=== PATIENT | female | born 1950 | race Caucasian/White ===

== ENCOUNTER 2021-06-26 13:51 | Outpatient (CLI) | payer MEDICARE ==
--- NOTE | 2021-06-26 14:15 | XRAY Report ---
PROCEDURE: Shoulder 3 View RT INDICATIONS: RIGHT SHOULDER PAIN TECHNIQUE: 3 views of the shoulder were acquired. COMPARISON: None. FINDINGS: Bones: No acute fractures or dislocations. No suspicious bony lesions. Visualized ribs appear inta ct. Soft tissues: No suspicious soft tissue calcifications. IMPRESSION: No acute osseous abnormality. If symptoms persist or there is continued clinical concern , further evaluation with MRI or CT may be helpful. Reviewed by: Demian Castillo MD on 06/26/2021 2:13 PM PDT Approved by: Demian Castillo MD on 06/26/2021 2:13 PM PDT Station ID: [id number]
== END 2021-06-26 13:52 | disposition home or self-care (01) ==
LOC: DI.S 13:51
PROVIDERS: ATTEND Nurse Practitioner Family
DX: M25.511 Pain in right shoulder (principal)

== ENCOUNTER 2022-08-28 13:00 | Outpatient (CLI) | payer MEDICARE ==
--- NOTE | 2022-09-05 12:02 | Mammography Report ---
BILATERAL DIGITAL SCREENING MAMMOGRAM 3D/2D: 08/28/2022 CLINICAL: Routine screening. Family history of breast cancer. No prior exams were available for comparison. Both breasts are almost entirely fatty (category a/<25% glandular tissue). There is an asymmetry in the right breast at 10 o'clock middle depth. There is an asymmetry in the left breast at 7 o'clock anterior depth. No other significant masses or calcifications are seen in either breast. IMPRESSION: INCOMPLETE: NEEDS ADDITIONAL IMAGING EVALUATION The asymmetry in the right breast at 10 o'clock middle depth is indeterminate. Additional views with possible ultrasound are recommended. The asymmetry in the left breast at 7 o'clock anterior depth is indeterminate. Additional views with possible ultrasound are recommended. Based on the Tyrer Cuzick model (a risk assessment model) the patients lifetime risk is 6.1% and her 10 year risk is 3.6%. According to the ACR, ACS, and NCCN guidelines, an annual breast MRI exam ulises g with mammogram is recommended if the patients lifetime risk is 20% or greater. This exam was interpreted at Station ID: [id number]. NOTE: For mammograms, a report in lay terms will be sent to the patient. Approximately 15% of breast malignancies will not be visualized mammographically. In the management of a palpable breast mass, a negative mammogram must not discourage biopsy of a clinically suspicious lesion. Electronically Signed By: Du Caban M.D. acr/:09/05/2022 11:55:19 ACR BI-RADS Category 0: Incomplete 3340F PARENCHYMAL PATTERN: (F) - The breast(s) demonstrate(s) diffuse fatty replacement. BI-RADS CATEGORY: (0) - 0 Mammo and US [id number] Immediate follow-up LATERALITY: (B)
== END 2022-08-28 13:01 | disposition home or self-care (01) ==
LOC: DI.S 13:00
PROVIDERS: ATTEND Nurse Practitioner Family
DX: Z12.31 Encounter for screening mammogram for malignant neoplasm of breast (principal); Z80.3 Family history of malignant neoplasm of breast; R92.8 Other abnormal and inconclusive findings on diagnostic imaging of breast

== ENCOUNTER 2022-09-22 12:14 | Outpatient (CLI) | payer MEDICARE ==
--- NOTE | 2022-09-25 11:44 | Mammography Report ---
BILATERAL DIGITAL DIAGNOSTIC MAMMOGRAM 3D/2D WITH SPOT COMPRESSION: 09/22/2022 CLINICAL: Patient returns today to evaluate asymmetries in bilateral breasts. Comparison is made to exams dated: 08/28/2022 mammogram - [facility], 01/13/2021 claudine mogram, 10/11/2020 mammogram, 10/18/2012 mammogram, and 10/15/2012 [facility]. Both breasts are almost entirely fatty (category a/<25% glandular tissue). There is an asymmetry in the right breast at 10 o'clock middle depth. This is not significantly anaya ged. There is an asymmetry in the left breast at 7 o'clock anterior depth. This is not significantly anaya ged. No other significant masses or calcifications are seen in either breast. IMPRESSION: INCOMPLETE: NEEDS ADDITIONAL IMAGING EVALUATION The asymmetry in the right breast at 10 o'clock middle depth is indeterminate. An ultrasound is ynani mmended. The asymmetry in the left breast at 7 o'clock anterior depth is indeterminate. An ultrasound is yanni mmended. Based on the Tyrer Cuzick model (a risk assessment model) the patients lifetime risk is 3.4% and her 10 year risk is 2.1%. According to the ACR, ACS, and NCCN guidelines, an annual breast MRI exam ulises g with mammogram is recommended if the patients lifetime risk is 20% or greater. This exam was interpreted at Station ID: [id number]. NOTE: For mammograms, a report in lay terms will be sent to the patient. Approximately 15% of breast malignancies will not be visualized mammographically. In the management of a palpable breast mass, a negative mammogram must not discourage biopsy of a clinically suspicious lesion. Electronically Signed By: Rod Alvarez M.D., jr/bruna:09/22/2022 13:32:23 ACR BI-RADS Category 0: Incomplete 3340F PARENCHYMAL PATTERN: (F) - The breast(s) demonstrate(s) diffuse fatty replacement. BI-RADS CATEGORY: (0) - 0 Ultrasound [id number] Immediate follow-up LATERALITY: (B)
--- NOTE | 2022-09-25 11:44 | Ultrasound Report ---
LIMITED ULTRASOUND OF LEFT BREAST: 09/22/2022 CLINICAL: Patient returns today to evaluate asymmetries in bilateral breasts. Comparison is made to exams dated: 09/22/2022 ultrasound, 09/22/2022 mammogram, 08/28/2022 mammogram - [facility], 01/13/2021 mammogram, 10/11/2020 mammogram, and 10/18/2012 mammogram - [facility]. Color flow ultrasound of the left breast 7 o'clock region was performed. Webb scale images of the r eal-time examination were reviewed. There is an oval mass in the left breast at 7 o'clock anterior depth. This oval mass is hypoechoic w ith no posterior acoustic shadowing or enhancement. Color flow imaging demonstrates that there is no vascularity present. IMPRESSION: PROBABLY BENIGN The oval mass in the left breast most likely is a complicated cyst or a lymph node and is probably be nign. Follow-up mammogram and ultrasound in 6 months is recommended. A follow-up mammogram and an ultrasound in 6 months is recommended to demonstrate stability. This exam was interpreted at Station ID: [id number]. Electronically Signed By: Rod Alvarez M.D., jr/bruna:09/22/2022 14:17:41 Ultrasound BI-RADS: 3 Probably benign BI-RADS CATEGORY: (3) - 3 Mammo and US [id number] 6 month follow-up LATERALITY: (B)
--- NOTE | 2022-09-25 11:44 | Ultrasound Report ---
LIMITED ULTRASOUND OF RIGHT BREAST: 09/22/2022 CLINICAL: Patient returns today to evaluate asymmetries in bilateral breasts. Comparison is made to exams dated: 09/22/2022 mammogram, 08/28/2022 mammogram - [facility], 01/13/2021 mammogram, 10/11/2020 mammogram, 10/18/2012 ultrasound, and 10/18/2012 mammogram - [facility]. Color flow ultrasound of the right breast 10 o'clock region was performed. Webb scale images of the real-time examination were reviewed. There is an oval mass in the right breast at 11 o'clock middle depth. This oval mass is hypoechoic. IMPRESSION: PROBABLY BENIGN The oval mass in the right breast most likely is a complicated cyst or a lymph node and is probably b enign. Follow-up mammogram and ultrasound in 6 months is recommended. A follow-up mammogram and an ultrasound in 6 months is recommended to demonstrate stability. This exam was interpreted at Station ID: [id number]. Electronically Signed By: Rod Alvarez M.D., jr/bruna:09/22/2022 14:16:58 Ultrasound BI-RADS: 3 Probably benign BI-RADS CATEGORY: (3) - 3 Mammo and US [id number] 6 month follow-up LATERALITY: (B)
== END 2022-09-22 12:15 | disposition home or self-care (01) ==
LOC: DI 12:14
PROVIDERS: ATTEND Nurse Practitioner Family
DX: N63.24 Unspecified lump in the left breast, lower inner quadrant (principal); N63.11 Unspecified lump in the right breast, upper outer quadrant

== ENCOUNTER 2022-12-19 11:47 | Outpatient (CLI) | payer MEDICARE ==
--- NOTE | 2022-12-19 18:30 | Ultrasound Report ---
PROCEDURE: Abdomen Limited INDICATIONS: HERNIA OF ANTERIOR ABDOMINAL WALL TECHNIQUE: Real-time focused scanning was performed of the abdomen, with image documentation. COMPARISON: None. FINDINGS: At the area of pain in the midline abdomen there is shadowing hypoechoic abnormality which may represent a recurrent fat-containing midline hernia with the shadowing presumably due to scarrin g or hernia repair mesh/material. There is no vascular mass or fluid collection identified. No obviou s bowel loops present. IMPRESSION: Shadowing hypoechoic mass at the area of interest could represent a recurrent hernia, although this i s not definitive. There is significant shadowing which is presumably due to hernia repair mesh/materi al and likely some scarring. Cross-sectional imaging would be better for complete characterization, i deally CT of the abdomen and pelvis with IV contrast. Reviewed by: Rod Alvarez MD on 12/19/2022 6:29 PM PDT Approved by: Rod Alvarez MD on 12/19/2022 6:29 PM PDT Station ID: [id number]
== END 2022-12-19 11:48 | disposition home or self-care (01) ==
LOC: DI 11:47
PROVIDERS: ATTEND Nurse Practitioner Family
DX: K43.9 Ventral hernia without obstruction or gangrene (principal); R19.00 Intra-abdominal and pelvic swelling, mass and lump, unspecified site

== ENCOUNTER 2023-01-09 10:41 | Outpatient (CLI) | payer MEDICARE ==
[2023-01-09] MEDS ORDERED: iohexoL-300 100 ML VIAL ONE (10:48)
[2023-01-09 11:00] LABS: CALCIUM 9.3 mg/dL (8.5-10.3); CREATININE 1.2 mg/dL (0.4-1.0); POTASSIUM 4.2 mmol/L (3.5-5.0)
--- NOTE | 2023-01-09 15:10 | CT Report ---
PROCEDURE: ABDOMEN/PELVIS W INDICATIONS: HERNIA CONTRAST: 100ml OMnipaque 300 TECHNIQUE: After the administration of oral and intravenous contrast, 5 mm thick sections acquired from the diap hragms to the symphysis. 5 mm thick coronal and sagittal reformats were acquired. For radiation dos e reduction, the following was used: automated exposure control, adjustment of mA and/or kV accordin g to patient size. COMPARISON: None FINDINGS: Image quality: Excellent. Lung bases and heart: Unremarkable. Liver: Mild hepatic steatosis. Gallbladder and biliary tree: Surgically absent. No biliary dilation, accounting for post-cholecystec arcadio state. Spleen: Unremarkable. Pancreas: Unremarkable. Adrenals: Unremarkable. Kidneys and ureters: Unremarkable. Bowel and peritoneum: No bowel distension. No pathologic free fluid. There is a gastric lap band in p lace. There is a very small abdominal wall defect. However, there is a hernia sac of omental fat whic h has traveled through the defect, with associated vasculature. There is no inflammatory change prese nt. 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 Lymph nodes: No central or retroperitoneal adenopathy. Vessels: Unremarkable. PELVIS Reproductive organs: Uterus is surgically absent. Bladder: Unremarkable. Lymph nodes: Unremarkable. Bones: No aggressive osseous abnormality. Other: None. IMPRESSION: 1. There is a gastric lap band present. 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 2. There is herniated omental fat and vasculature through a very small anterior abdominal wall defect at the location of the gastric lap band reservoir. 3. Mild diffuse hepatic steatosis. 4. No evidence of acute abdominal process. Reviewed by: Andres Pineda MD on 01/09/2023 3:09 PM PDT Approved by: Andres Pineda MD on 01/09/2023 3:09 PM PDT Station ID: [id number]
[2023-01-09] MEDS ORDERED: DIATRIZOATE MEGLU/DIATRIZO SOD 30 ML BOTTLE PO ONE (18:01)
[2023-01-09] MEDS ORDERED: iohexoL-300 100 ML VIAL IVP ONE (18:01)
== END 2023-01-09 10:42 | disposition home or self-care (01) ==
LOC: LAB 10:41
PROVIDERS: ATTEND Nurse Practitioner Family
DX: K43.9 Ventral hernia without obstruction or gangrene (principal); Z98.84 Bariatric surgery status; K76.0 Fatty (change of) liver, not elsewhere classified
CPT/HCPCS: 36415; 74177; 80048; Q9963; Q9967

== ENCOUNTER 2023-03-08 09:38 | Outpatient (CLI) | payer MEDICARE ==
--- NOTE | 2023-03-09 09:47 | Mammography Report ---
BILATERAL DIGITAL DIAGNOSTIC MAMMOGRAM 3D/2D: 03/08/2023 CLINICAL: Patient returns for a 6 month follow up of bilateral breasts. Comparison is made to exams dated: 09/22/2022 mammogram, 08/28/2022 mammogram - [facility], 01/13/2021 mammogram, 10/11/2020 mammogram, and 10/18/2012 [facility]ogram - [facility]. There are scattered areas of fibroglandular density in both breasts (category b / 25%-50% glandular t issue). There is a stable oval focal asymmetry in the right breast at 11 o'clock middle depth. There is a focal asymmetry in the left breast at 7 o'clock anterior depth. This is not seen in addit ional views. No other significant masses or calcifications are seen in either breast. IMPRESSION: INCOMPLETE: NEEDS ADDITIONAL IMAGING EVALUATION The stable oval focal asymmetry in the right breast at 11 o'clock middle depth resembles a cyst and i s indeterminate. The focal asymmetry in the left breast at 7 o'clock anterior depth is indeterminate. A targeted ultrasound is recommended and will immediately follow. Based on the Tyrer Cuzick model (a risk assessment model) the patients lifetime risk is 5.1% and her 10 year risk is 3.2%. According to the ACR, ACS, and NCCN guidelines, an annual breast MRI exam ulises g with mammogram is recommended if the patients lifetime risk is 20% or greater. This exam was interpreted at Station ID: [id number]. NOTE: For mammograms, a report in lay terms will be sent to the patient. Approximately 15% of breast malignancies will not be visualized mammographically. In the management of a palpable breast mass, a negative mammogram must not discourage biopsy of a clinically suspicious lesion. Electronically Signed By: Thomas Kwok M.D. slc/:03/08/2023 11:03:58 ACR BI-RADS Category 0: Incomplete 3340F PARENCHYMAL PATTERN: (A) - The breast(s) demonstrate(s) scattered fibroglandular densities. BI-RADS CATEGORY: (0) - 0 Ultrasound [id number] Immediate follow-up LATERALITY: (B)
--- NOTE | 2023-03-09 09:47 | Ultrasound Report ---
LIMITED ULTRASOUND OF LEFT BREAST: 03/08/2023 CLINICAL: Patient returns today to evaluate a focal asymmetry in the left breast. Comparison is made to exams dated: 09/22/2022 ultrasound, 09/22/2022 ultrasound, 03/08/2023 mammogram, 09/22/2022 mammogram - [facility], 01/13/2021 [facility] - [facility], and 08/28/2022 mammogram - [facility]. Color flow ultrasound of the left breast 7 o'clock region was performed. Webb scale images of the re al-time examination were reviewed. There is a benign 0.6 cm x 0.4 cm x 0.2 cm lymph node with a circumscribed margin in the left breast at 7 o'clock anterior depth 5 cm from the nipple. This abnormality is decreased in size. Color flow imaging demonstrates that there is no vascularity present. IMPRESSION: BENIGN There is no sonographic evidence of malignancy. The lymph node in the left breast is decreased in size and is benign. Exam findings were conveyed to the patient. A 1 year screening mammogram is recommended. Please see separately dictated right breast US. 6 month follow-up ultrasound for the right breast. This exam was interpreted at Station ID: [id number]. Electronically Signed By: Thomas Kwok M.D. slc/:03/08/2023 11:33:25 Ultrasound BI-RADS: 2 Benign BI-RADS CATEGORY: (2) - 2 Mammogram [id number] 1 year screening LATERALITY: (B)
--- NOTE | 2023-03-09 09:47 | Ultrasound Report ---
LIMITED ULTRASOUND OF RIGHT BREAST: 03/08/2023 CLINICAL: Patient returns today to evaluate a focal asymmetry in the right breast. Comparison is made to exams dated: 03/08/2023 ultrasound, 03/08/2023 mammogram, 09/22/2022 ultrasound, 1 11/23/2021 ultrasound, 09/22/2022 mammogram, and 08/28/2022 mammogram - [facility]. Color flow ultrasound of the right breast 10 o'clock region was performed. Webb scale images of the real-time examination were reviewed. There is a 1 cm x 0.8 cm x 0.3 cm oval mass in the right breast at 11 o'clock middle depth 6 cm from the nipple. The cyst is slightly increased in size. This oval mass is hypoechoic. This correlates w ith mammography findings. Color flow imaging demonstrates that there is no vascularity present. IMPRESSION: PROBABLY BENIGN The 1 cm complicated cyst in the right breast is probably benign. A follow-up ultrasound in 6 months is recommended to demonstrate stability. Exam findings were conveyed to the patient. This exam was interpreted at Station ID: [id number]. Electronically Signed By: Thomas Kwok M.D. slc/:03/08/2023 11:18:43 Ultrasound BI-RADS: 3 Probably benign BI-RADS CATEGORY: (3) - 3 Ultrasound [id number] 6 month follow-up LATERALITY: (B)
== END 2023-03-08 09:39 | disposition home or self-care (01) ==
LOC: DI 09:38
PROVIDERS: ATTEND Nurse Practitioner Family
DX: N60.01 Solitary cyst of right breast (principal)

== ENCOUNTER 2023-09-19 10:20 | Outpatient (CLI) | payer MEDICARE ==
--- NOTE | 2023-09-20 10:47 | Ultrasound Report ---
LIMITED ULTRASOUND OF RIGHT BREAST: 09/19/2023 CLINICAL: Short term follow up of the right breast. Comparison is made to exams dated: 03/08/2023 ultrasound, 03/08/2023 mammogram, and 09/22/2022 [facility]. Color flow ultrasound of the right breast 10 o'clock region was performed. Webb scale images of the real-time examination were reviewed. There is a 0.9 cm x 0.6 cm x 0.4 cm oval benign-appearing lymph node in the right breast at 10 o'cloc k posterior depth 6 cm from the nipple. This abnormality is not significantly changed and correlates with mammography findings. Color flow imaging demonstrates that there is no vascularity present. IMPRESSION: BENIGN There is no sonographic evidence of malignancy. The 0.9 cm x 0.6 cm x 0.4 cm node in the right breast is consistent with a benign lymph node. Return to annual mammogram screening schedule is recommended. Future imaging is recommended as follo ws: 03/08/2024 screening mammogram. Findings and recommendations were conveyed to the patient at jil e of exam. This exam was interpreted at Station ID: [id number]. Electronically Signed By: Rehana antonio/:09/19/2023 11:44:41 letter sent: No_Letter Ultrasound BI-RADS: 2 Benign BI-RADS CATEGORY: (2) - 2 Mammogram [id number] return to screening LATERALITY: (B)
== END 2023-09-19 10:21 | disposition home or self-care (01) ==
LOC: DI 10:20
PROVIDERS: ATTEND Family Medicine
DX: R92.8 Other abnormal and inconclusive findings on diagnostic imaging of breast (principal)

== ENCOUNTER 2024-05-19 09:43 | Outpatient (CLI) | payer MEDICARE ==
--- NOTE | 2024-05-20 07:59 | Mammography Report ---
BILATERAL DIGITAL SCREENING MAMMOGRAM 3D/2D: 05/19/2024 CLINICAL: Routine screening. Family history of breast cancer. No prior exams were available for comparison. There are scattered areas of fibroglandular density in both breasts (category b / 25%-50% glandular t issue). There is an irregular asymmetry with round calcifications in the right breast at 2 o'clock posterior depth. This is more prominent. No other significant masses, calcifications, or other findings are seen in either breast. IMPRESSION: INCOMPLETE: NEEDS ADDITIONAL IMAGING EVALUATION The irregular asymmetry in the right breast is indeterminate. Additional views with possible ultraso und are recommended. Future imaging is recommended as follows: 08/29/2024 screening mammogram. Based on the Tyrer Cuzick model (a risk assessment model) the patient's lifetime risk is 4.8% and her 10 year risk is 3.3%. According to the ACR, ACS, and NCCN guidelines, an annual breast MRI exam ulises g with mammogram is recommended if the patient's lifetime risk is 20% or greater. This exam was interpreted at Station ID: [id number]. NOTE: For mammograms, a report in lay terms will be sent to the patient. Approximately 15% of breast malignancies will not be visualized mammographically. In the management of a palpable breast mass, a negative mammogram must not discourage biopsy of a clinically suspicious lesion. Electronically Signed By: Rehana antonio/:05/19/2024 12:39:30 ACR BI-RADS Category 0: Incomplete 3340F PARENCHYMAL PATTERN: (A) - The breast(s) demonstrate(s) scattered fibroglandular densities. BI-RADS CATEGORY: (0) - 0 Mammo and US [id number] Immediate follow-up LATERALITY: (B)
== END 2024-05-19 09:44 | disposition home or self-care (01) ==
LOC: DI.S 09:43
PROVIDERS: ATTEND Registered Nurse
DX: Z12.31 Encounter for screening mammogram for malignant neoplasm of breast (principal); R92.8 Other abnormal and inconclusive findings on diagnostic imaging of breast; R92.323 Mammographic fibroglandular density, bilateral breasts; Z80.3 Family history of malignant neoplasm of breast

== ENCOUNTER 2024-06-04 10:44 | Outpatient (CLI) | payer MEDICARE ==
--- NOTE | 2024-06-05 08:28 | Mammography Report ---
UNILATERAL RIGHT DIGITAL DIAGNOSTIC MAMMOGRAM 3D/2D WITH SPOT COMPRESSION: 06/04/2024 CLINICAL: Patient returns today to evaluate a focal asymmetry in the right breast. Comparison is made to exams dated: 05/19/2024 mammogram, 03/08/2023 mammogram, 09/22/2022 mammogram, mammogram - [facility], 01/13/2021 mammogram, and 10/11/2020 mammogram - [facility]. There are scattered areas of fibroglandular density in the right breast (category b / 25%-50% glandul ar tissue). There is an oval focal asymmetry with round calcifications in the right breast at 12 o'clock middle d epth. This is more prominent. No other significant masses or calcifications are seen in the breast. IMPRESSION: INCOMPLETE: NEEDS ADDITIONAL IMAGING EVALUATION The oval focal asymmetry in the right breast is indeterminate. A targeted ultrasound is recommended and will immediately follow. Based on the Tyrer Cuzick model (a risk assessment model) the patient's lifetime risk is 4.8% and her 10 year risk is 3.3%. According to the ACR, ACS, and NCCN guidelines, an annual breast MRI exam ulises g with mammogram is recommended if the patient's lifetime risk is 20% or greater. This exam was interpreted at Station ID: [id number]. NOTE: For mammograms, a report in lay terms will be sent to the patient. Approximately 15% of breast malignancies will not be visualized mammographically. In the management of a palpable breast mass, a negative mammogram must not discourage biopsy of a clinically suspicious lesion. Electronically Signed By: Thomas Kwok M.D. [facility] [place]/:06/04/2024 11:24:12 ACR BI-RADS Category 0: Incomplete 3340F PARENCHYMAL PATTERN: (A) - The breast(s) demonstrate(s) scattered fibroglandular densities. BI-RADS CATEGORY: (0) - 0 Ultrasound [id number] Immediate follow-up LATERALITY: (B)
--- NOTE | 2024-06-05 08:28 | Ultrasound Report ---
LIMITED ULTRASOUND OF RIGHT BREAST: 06/04/2024 CLINICAL: Patient returns today to evaluate a focal asymmetry in the right breast. Comparison is made to exams dated: 06/04/2024 mammogram, 05/19/2024 mammogram, 09/19/2023 ultrasound, 03/08/2023 ultrasound, 03/08/2023 mammogram, and 09/22/2022 ultrasound - [facility]. Color flow ultrasound of the right breast 12-2 o'clock region was performed. Webb scale images of th e real-time examination were reviewed. There is a benign 0.7 cm x 0.6 cm x 0.3 cm normal lymph node with a circumscribed margin in the right breast at 1 o'clock middle depth 6 cm from the nipple. This normal lymph node is hypoechoic with fa tty hilum. This correlates with mammography findings. Color flow imaging demonstrates that there is no vascularity present. IMPRESSION: BENIGN There is no sonographic evidence of malignancy. The 0.7 cm x 0.6 cm x 0.3 cm normal lymph node in the right breast is benign. Exam findings were conveyed to the patient. A 1 year screening mammogram is recommended. This exam was interpreted at Station ID: [id number]. Electronically Signed By: Thomas Kwok M.D. slc/:06/04/2024 13:25:04 Ultrasound BI-RADS: 2 Benign BI-RADS CATEGORY: (2) - 2 RECOMMENDATION: (ANNUAL) - Recommend routine annual screening mammography. [id number] 1 year screening LATERALITY: (B)
== END 2024-06-04 10:45 | disposition home or self-care (01) ==
LOC: DI 10:44
PROVIDERS: ATTEND Registered Nurse
DX: R92.8 Other abnormal and inconclusive findings on diagnostic imaging of breast (principal); R92.321 Mammographic fibroglandular density, right breast